=== PATIENT | male | born 1995 | race African-American/Black ===

== ENCOUNTER 2022-04-18 23:08 | Emergency (ER) | payer OTHER ==
[2022-04-18 23:34] VITALS: BP 139/68; PULSE 69; RESP 20; TEMP 98.7; BMI 30.4
[2022-04-19] MEDS ORDERED: ACETAMINOPHEN WITH CODEINE 300MG/30MG TABLET PO ONE (00:08)
[2022-04-19] MEDS ORDERED: ACETAMINOPHEN WITH CODEINE 300MG/30MG TABLET ONE (00:10)
== END 2022-04-19 00:19 | disposition home or self-care (01) ==
LOC: JER 23:08
DX: R05.9 Cough, unspecified (principal)
CPT/HCPCS: 0241U-QW; 99283-25